=== PATIENT | male | born 1970 | race Caucasian/White ===

== ENCOUNTER 2022-08-31 10:00 | Outpatient (RCR) | payer OTHER, SELFPAY ==
--- NOTE | 2022-08-18 14:00 | HP.PTEVAL ---
Patient's Visit Information BUFFY HERRERA is a 52 year old M referred to Physical Therapy by REAL HERRERA with a diagnosis of Left THR 06/30/22. Date of Evaluation: 08/18/22 Physical Therapist: Starr Worrell DPT - Visit Plan Frequency: 2x /Week Duration: 4 Weeks Plan: Left THR Jun 30- Posterior Approach- Focus on LE and Core Strength/Stabilization- functional mobility. HEP Given IE: Weights shift, glut set, quad set, SLR with A, heel slide, hip adduction with pillow - Subjective Left THR 7 weeks ago in [place]- he spent two weeks in [place] and then came home and has been moving it around on his own. Not where he wants to be at this point. He has pain in the hip all the time- its get more painful when he walks to fast and is on it too long. Does radiate down the top of the thigh and into the groin area. Has not had any x-rays since he has been home. He sees a chiropractor regularly- they have him doing wobble on a ball and traction on his cervical spine. Worst: 5/10 Agg: standing or walking. When he sits the pain goes away immediately- more tingling when she is sitting. He has no N/T- no buckling under him. He has tried to walk without the cane but is unable. he was using a cane a little bit prior to surgery. Posterior approach- they told him precautions for a few weeks. He does not have to follow up with the clinic just with the chiropractor he sees regularly. He is normally pretty active. 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 Sleep: disturbed. PMHx: Hernia surgery when he was 2 years old and appendicitis at 24 years old. Meds: none - Objective Posture: FH, RS- can correct with verbal cues but does not maintain. Gait: straight cane- step to gait pattern- decreased stance on the left LE. Stairs: asc/desc 8 non recip with 2 HR reports pain Palpation: tender in the distal quad along incision. HR/TR: able with reports of discomfort, SLS: weight shift but will not SLS due to 6-7/10 pain ROM: Ankle: WFL, Knee: 15- 120 degrees, Hip: Flexion: 90 degrees stopped due to precaution, Extn: 5 degrees, Abd: 40 degrees with discomfort at end range, Add: neutral due to precautions IR/ER: not tested due to precautions. Strength: Core: poor, Hip: Flexion: SLR: mild lag but was able to complete indep but reports significant discomfort, Abd/Add: 4/5, Extn: 4+/5, IR/ER isometric: 3/5. Knee: 4+/5, Ankle: 5/5. Flex: HS: severe Gastroc: severe. - Balance/Special Test Scores Lower Extremity Functional Score: 14 - Goals Goal 1:: Patient will be I with HEP and progression Goal Time Frame: 4-6 Weeks Goal 2:: Patient will ambulate >300 feet with a normalized gait pattern without AD Goal Time Frame: 4-6 Weeks Goal 3:: Patient will asc/desc 8 stairs recip with 1 HR Goal Time Frame: 4-6 Weeks Goal 4:: Patient will SLS for 15 sec without loss of balance Goal Time Frame: 4-6 Weeks Goal 5:: Patient will report 80% improvement Goal Time Frame: 4-6 Weeks - Rehabilitation Potential Physical Therapy Diagnosis: Patient presents s/p left THR- he has hypomobility- he has decreased ROM, LE and core strength/stabilization, flex and muscular endurance- leading to abnormal gait pattern and decreased ability to perform ADL's. - Anticipated Interventions Patient/Client Instruction: Educate patient on: Benefits of Fitness Program Therapeutic Exercise to Include: Strength training, Endurance training, Balance training, Coordination, Agility training, Body mechanics, Postural training, Flexibilty training, Gait and locomotor training, Dynamic Lumbar Stabilization, Scapular Strength/Stabilization TENS: Yes Cryotherapy (ice pack, ice massage): Yes Thermo therapy (hot pack): Yes Ultrasound (thermal/non thermal): No Thank you for the opportunity to evaluate your patient. For Medicare and Medicare HMO plans, please review the plan of care and approve it. It will need to be FAXED BACK to us at [phone] for Medicare purposes. For Medicare only, by signing this I certify the plan of care. Please let me know if there are questions or concerns regarding this plan of care. Physician Signature: Date:
--- NOTE | 2022-11-07 08:04 | HP.PT.NRP ---
BUFFY HERRERA was seen in my office for initial evaluation on 08/18/22. The following Plan of Care was established for this patient: Initial Frequency: 2x /Week Initial Duration: 4 Weeks Patient/Client Instruction: Educate patient on: Benefits of Fitness Program Therapeutic Exercise to Include: Strength training, Endurance training, Balance training, Coordination, Agility training, Body mechanics, Postural training, Flexibilty training, Gait and locomotor training, Dynamic Lumbar Stabilization, Scapular Strength/Stabilization TENS: Yes Cryotherapy (ice pack, ice massage): Yes Thermo therapy (hot pack): Yes Ultrasound (thermal/non thermal): No This patient was last seen in our office . Pertinent comments regarding their Physical therapy will appear below: Patient has not attended PT in over 30 days- appropriate to be d/c from PT and return to MD as appropriate At this point I will be discontinuing this patient from physical therapy. I would be happy to see this patient again in the future if found appropriate by the physician. Thank you! JACINTO XieT Balance/Gait/Functional tests - Balance/Special Test Scores Lower Extremity Functional Score: 14
== END 2022-08-31 19:00 | disposition home or self-care (01) ==
LOC: PT 10:00
DX: R53.1 Weakness (principal); Z96.641 Presence of right artificial hip joint
CPT/HCPCS: 97110; 97162